=== PATIENT | male | born 1990 | race Caucasian/White ===

== ENCOUNTER 2016-08-02 11:12 | Emergency (ER) | payer SELFPAY ==
[~2016-08-02] VITALS: Ht 167.6 cm; Wt 89.4 kg
[2016-08-02 11:16] VITALS: Ht 167.6 cm; Wt 89.4 kg
== END 2016-08-02 13:40 | disposition left against medical advice (07) ==
LOC: FTE 11:12
DX: Z53.21 Procedure and treatment not carried out due to patient leaving prior to being seen by health care provider (principal)